=== PATIENT | female | born 1980 | race Two or more races ===

== ENCOUNTER 2021-09-02 01:39 | Observation (INO) | payer OTHER ==
[2021-09-02] MEDS ORDERED: SODIUM CHLORIDE 0.9% 500 ML INFUS.BAG IV ONE (02:26)
[2021-09-02 03:04] LABS: EPI CELLS 21 /uL (0-25.1); HYALINE CASTS 1 /uL (0-3.1); URINE APPEARANCE CLEAR; URINE BACTERIA 299 /uL (0-1359); URINE BILIRUBIN NEGATIVE (NEGATIVE); URINE COLOR YELLOW; URINE GLUCOSE (UA) NEGATIVE (NEGATIVE); URINE KETONE NEGATIVE (NEGATIVE); URINE LEUK ESTERASE TRACE (NEGATIVE); URINE NITRITE NEGATIVE (NEGATIVE); URINE PROTEIN NEGATIVE (NEGATIVE); URINE RBC 1 /uL (0-23.9); URINE UROBILINOGEN 0.2 mg/dL (0.2-1.0); URINE WBC 13 /uL (0-25.8)
[2021-09-02 03:06] LABS: BASO % 0.6 % (0-2.0); EOS % 0.2 % (0-4.5); HEMOGLOBIN 9.1 GM/dL (10.7-15.3); LYMPH % 15.3 % (8-40); MCHC 31.5 g/dl (32.0-36.0); MEAN CELL VOLUME 56.3 fl (80-96); MEAN PLT VOLUME 8.4 fl (7.5-11.1); MONO % 5.2 % (3.8-10.2); NEUT % 78.7 % (42.8-82.8); PLATELET COUNT 270 10^3/uL (134-434); RBC 5.15 M/mm3 (3.60-5.2); RDW 22.2 % (11.6-15.6); WHITE BLOOD COUNT 9.7 K/mm3 (4.0-10.0)
[2021-09-02 03:13] LABS: MCH 17.8 pg (25.7-33.7)
[2021-09-02 03:31] LABS: CHLORIDE 108 mmol/L (98-107); SODIUM 140 mmol/L (136-145)
[2021-09-02 03:33] LABS: ALBUMIN 3.8 g/dl (3.4-5.0); CALCIUM 8.4 mg/dL (8.5-10.1)
[2021-09-02 03:34] LABS: ANION GAP 9 MMOL/L (8-16); BLOOD UREA NITROGEN 14.7 mg/dL (7-18); CO2 22 mmol/L (21-32); GLUCOSE,RANDOM 128 mg/dL (74-106)
[2021-09-02 03:37] LABS: SGOT/AST 13 U/L (15-37); SGPT/ALT 27 U/L (13-61)
[2021-09-02 03:38] LABS: TOT PROT 8.1 g/dl (6.4-8.2)
[2021-09-02 03:39] LABS: BILIRUBIN,TOTAL 0.4 mg/dL (0.2-1)
[2021-09-02 03:40] LABS: ALK PHOS 64 U/L (45-117)
[2021-09-02 07:06] VITALS: TEMP 98.1
[2021-09-02 07:15] LABS: ANISOCYTOSIS 3+; MACROCYTOSIS 0; OVALOCYTE 1+; PLATELET ESTIMATE NORMAL; TARGET CELLS 2+
[2021-09-02 12:10] VITALS: BP 119/70
[2021-09-03 12:02] VITALS: PULSE 82
== END 2021-09-02 16:30 | disposition home or self-care (01) ==
LOC: JER 01:39 → JERBED 07:24
PROVIDERS: ADMIT Internal Medicine; ATTEND Internal Medicine
PROC: 3E0337Z Introduction of Electrolytic and Water Balance Substance into Peripheral Vein, Percutaneous Approach (ICD-10-PCS; principal; 2021-09-02)
DX: D64.9 Anemia, unspecified (principal); R07.9 Chest pain, unspecified; F41.9 Anxiety disorder, unspecified; R00.2 Palpitations
CPT/HCPCS: 36415; 71045-TC-FY; 80053; 81003; 82272; 82550; 84439; 84443; 84484; 84703; 85025; 85379; 86850; 86900; 86901; 87086; 87186; 87804; 93005; 93010; 99285-25; C9803; G0378; U0003; U0005

== ENCOUNTER 2024-05-05 13:00 | Inpatient (IN) | payer OTHER ==
[2024-05-05 14:59] LABS: BASO % 0.6 % (0-2.0); EOS % 0.6 % (0-4.5); HEMATOCRIT 29.8 % (32.4-45.2); HEMOGLOBIN 9.3 GM/dL (10.7-15.3); LYMPH % 18.9 % (8-40); MCHC 31.3 g/dl (32.0-36.0); MEAN CELL VOLUME 55.3 fl (80-96); MEAN PLT VOLUME 8.4 fl (7.5-11.1); MONO % 5.6 % (3.8-10.2); NEUT % 74.3 % (42.8-82.8); PLATELET COUNT 319 10^3/uL (134-434); RBC 5.38 M/mm3 (3.60-5.2); RDW 22.2 % (11.6-15.6); WHITE BLOOD COUNT 12.5 K/mm3 (4.0-10.0)
[2024-05-05 15:01] LABS: MCH 17.3 pg (25.7-33.7)
[2024-05-05] MEDS ORDERED: ONDANSETRON 4 MG/2 ML VIAL ONE (15:06)
[2024-05-05] MEDS ORDERED: LIDOCAINE VISCOUS 2% ORAL/TOP 15 ML UNIT-DOSE CUP ONE (15:06)
[2024-05-05] MEDS ORDERED: MAG HYDROX/AL HYDROX/SIMETH 30 ML UNIT-DOSE CUP ONE (15:06)
[2024-05-05] MEDS ORDERED: FAMOTIDINE 20 MG/50 ML IVPB 20 MG/50 ML MG IVPB ONE (15:07)
[2024-05-05] MEDS: SODIUM CHLORIDE 1,000 ML IV STA (15:15)
[2024-05-05] MEDS: ONDANSETRON 4 MG/2 ML VIAL IVPUSH ONE (15:16)
[2024-05-05] MEDS: LIDOCAINE VISCOUS 2% ORAL/TOP 15 ML UNIT-DOSE CUP MM ONE (15:16)
[2024-05-05] MEDS: FAMOTIDINE 20 MG/50 ML IVPB 20 MG/50 ML MG IVPB ONE (15:16)
[2024-05-05] MEDS: MAG HYDROX/AL HYDROX/SIMETH 30 ML UNIT-DOSE CUP PO ONE (15:16)
[2024-05-05 15:21] LABS: ANISOCYTOSIS 3+; MACROCYTOSIS 0; OVALOCYTE 1+
[2024-05-05 15:24] LABS: PLATELET ESTIMATE ADEQUATE
[2024-05-05 15:26] LABS: POTASSIUM 3.9 mmol/L (3.5-5.1)
[2024-05-05 15:28] LABS: ALBUMIN 3.9 g/dl (3.4-5.0); BLOOD UREA NITROGEN 8.2 mg/dL (7-18); CALCIUM 9.1 mg/dL (8.5-10.1)
[2024-05-05 15:32] LABS: CREATININE 0.7 mg/dL (0.55-1.3)
[2024-05-05 15:33] LABS: BILIRUBIN,TOTAL 0.4 mg/dL (0.2-1); TOT PROT 7.8 g/dl (6.4-8.2)
[2024-05-05 18:39] LABS: PH,URINE 6.5 (5.0-8.0); URINE APPEARANCE CLEAR; URINE BILIRUBIN NEGATIVE (NEGATIVE); URINE COLOR YELLOW; URINE GLUCOSE (UA) NEGATIVE (NEGATIVE); URINE KETONE NEGATIVE (NEGATIVE); URINE LEUK ESTERASE NEGATIVE (NEGATIVE); URINE NITRITE NEGATIVE (NEGATIVE); URINE PROTEIN NEGATIVE (NEGATIVE); URINE UROBILINOGEN 0.2 mg/dL (0.2-1.0)
[2024-05-05] MEDS ORDERED: CEFTRIAXONE 2 GM/100 ML BAG IVPB ONE (18:49)
[2024-05-05] MEDS: CEFTRIAXONE 2 GM in DEXTROSE 5%-WATER - 100 ML IVPB ONE (18:54)
[2024-05-05 19:24] VITALS: RESP 18
[2024-05-05] MEDS: DEXTROSE 5%-0.45% SALINE 1,000 ML IV SCH (23:46)
[2024-05-06] MEDS: ACETAMINOPHEN 1000 MG/100 ML BAG IVPB PRN ×2 (02:57→18:00)
[2024-05-06 07:55] VITALS: BMI 26.5
[2024-05-06] MEDS ORDERED: CEFOXITIN SODIUM 1 GM in DEXTROSE 5%-WATER - 100 ML IVPB SCH (09:00)
[2024-05-06] MEDS ORDERED: CEFOXITIN SODIUM 1 GM in DEXTROSE 5%-WATER 100 ML IVPB SCH (09:00)
[2024-05-06 10:29] LABS: BASO % 0.9 % (0-2.0); EOS % 1.7 % (0-4.5); HEMATOCRIT 27.7 % (32.4-45.2); HEMOGLOBIN 8.8 GM/dL (10.7-15.3); LYMPH % 28.6 % (8-40); MCHC 31.7 g/dl (32.0-36.0); MEAN CELL VOLUME 55.6 fl (80-96); MEAN PLT VOLUME 8.9 fl (7.5-11.1); MONO % 8.2 % (3.8-10.2); NEUT % 60.6 % (42.8-82.8); PLATELET COUNT 291 10^3/uL (134-434); RBC 4.99 M/mm3 (3.60-5.2); WHITE BLOOD COUNT 6.8 K/mm3 (4.0-10.0)
[2024-05-06 10:34] LABS: MCH 17.6 pg (25.7-33.7)
[2024-05-06 10:44] LABS: POTASSIUM 3.7 mmol/L (3.5-5.1)
[2024-05-06 10:48] LABS: BLOOD UREA NITROGEN 6.2 mg/dL (7-18); CALCIUM 8.4 mg/dL (8.5-10.1)
[2024-05-06 10:52] LABS: CREATININE 0.6 mg/dL (0.55-1.3)
[2024-05-06] MEDS ORDERED: MIDAZOLAM HCL 2 MG/2 ML SINGLE DOSE VIAL ONE (13:08)
[2024-05-06] MEDS ORDERED: ROCURONIUM BROMIDE 50 MG/5 ML SYRINGE ONE (13:08)
[2024-05-06] MEDS ORDERED: SUCCINYLCHOLINE CHLORIDE 200 MG/10 ML SYRINGE ONE (13:08)
[2024-05-06] MEDS ORDERED: PROPOFOL 40 ML ONE (13:08)
[2024-05-06] MEDS ORDERED: BUPIVACAINE HCL/PF 0.25% (2.5MG/ML) 10 ML VIAL ONE (13:20)
[2024-05-06] MEDS ORDERED: cefOXitin SODIUM 2 GM VIAL (RESTRICTED TO ID) IVPB ONE (14:14)
[2024-05-06] MEDS: BUPIVACAINE HCL/PF 0.25% (2.5MG/ML) 10 ML VIAL STI ONE (14:30)
[2024-05-06] MEDS ORDERED: NEOSTIGMINE METHYLSULFATE 0.5 MG/1 ML - 10 ML MDV ONE (15:38)
[2024-05-06] MEDS: FAMOTIDINE 20 MG/50 ML IVPB 20 MG/50 ML MG IVPB ONE (17:34)
[2024-05-06] MEDS ORDERED: ACETAMINOPHEN INJECTION 100 ML IVPB ONE (17:54)
[2024-05-06] MEDS ORDERED: KETOROLAC TROMETHAMINE 30 MG/1 ML VIAL IVPUSH SCH (18:00)
[2024-05-06] MEDS ORDERED: ONDANSETRON 4 MG/2 ML VIAL IVPUSH PRN (18:07)
[2024-05-06] MEDS: DEXTROSE 5%-0.45% SALINE 1,000 ML IV SCH (20:00)
[2024-05-07] MEDS: ACETAMINOPHEN 325 MG TABLET (FP) PO ONE (02:22)
[2024-05-07] MEDS ORDERED: oxyCODONE HCL 5 MG TABLET PO PRN (05:41)
[2024-05-07] MEDS: CEFTRIAXONE 1 GM in DEXTROSE 5%-WATER - 50 ML IVPB SCH (08:04)
[2024-05-07] MEDS: LACTATED RINGERS SOLUTION 1,000 ML IV SCH (08:04)
[2024-05-07 09:29] VITALS: BP 118/79; PULSE 74; TEMP 98.4
[2024-05-07] MEDS ORDERED: CEFTRIAXONE 1 GM in DEXTROSE 5%-WATER - 50 ML IVPB SCH (10:00)
[2024-05-07 10:18] LABS: HEMATOCRIT 28.3 % (32.4-45.2); HEMOGLOBIN 8.7 GM/dL (10.7-15.3); MCHC 30.9 g/dl (32.0-36.0); MEAN CELL VOLUME 55.9 fl (80-96); MEAN PLT VOLUME 8.7 fl (7.5-11.1); PLATELET COUNT 290 10^3/uL (134-434); RBC 5.07 M/mm3 (3.60-5.2); RDW 22.2 % (11.6-15.6); WHITE BLOOD COUNT 14.8 K/mm3 (4.0-10.0)
[2024-05-07 10:19] LABS: MCH 17.3 pg (25.7-33.7)
[2024-05-07 10:30] LABS: ALBUMIN 3.3 g/dl (3.4-5.0)
[2024-05-07 10:33] LABS: BILIRUBIN,TOTAL 0.4 mg/dL (0.2-1); TOT PROT 6.9 g/dl (6.4-8.2)
[2024-05-07 10:34] LABS: BILIRUBIN,DIRECT 0.1 mg/dL (0.0-0.2)
[2024-05-07] MEDS: ACETAMINOPHEN 500 MG TABLET (FP) PO SCH (10:43)
[2024-05-07] MEDS: LACTATED RINGERS SOLUTION 1000 ML INFUS.BAG IV ONE (12:06)
[2024-05-07 13:20] LABS: BASO % 0.2 % (0-2.0); HEMATOCRIT 26.1 % (32.4-45.2); HEMOGLOBIN 8.1 GM/dL (10.7-15.3); MCH 17.2 pg (25.7-33.7); MCHC 30.9 g/dl (32.0-36.0); MEAN CELL VOLUME 55.6 fl (80-96); MEAN PLT VOLUME 8.6 fl (7.5-11.1); NEUT % 78.8 % (42.8-82.8); PLATELET COUNT 270 10^3/uL (134-434); WHITE BLOOD COUNT 14.7 K/mm3 (4.0-10.0)
[2024-05-07 13:45] LABS: POTASSIUM 3.6 mmol/L (3.5-5.1)
[2024-05-07 13:49] LABS: CALCIUM 8.3 mg/dL (8.5-10.1)
[2024-05-07 13:50] LABS: ALBUMIN 3.2 g/dl (3.4-5.0)
[2024-05-07 13:53] LABS: BILIRUBIN,TOTAL 1.3 mg/dL (0.2-1); CREATININE 0.7 mg/dL (0.55-1.3)
[2024-05-07 13:54] LABS: TOT PROT 6.3 g/dl (6.4-8.2)
== END 2024-05-07 18:09 | disposition home or self-care (01) | DRG 263 ==
LOC: JER 13:00 → JERBED 17:23 → J6S 19:26
PROVIDERS: ADMIT Internal Medicine; ATTEND Internal Medicine
PROC: 0FT44ZZ Resection of Gallbladder, Percutaneous Endoscopic Approach (ICD-10-PCS; principal; 2024-05-06 14:38)
DX: K80.12 Calculus of gallbladder with acute and chronic cholecystitis without obstruction (principal); I10 Essential (primary) hypertension; R10.11 Right upper quadrant pain; D72.829 Elevated white blood cell count, unspecified
CPT/HCPCS: 36415; 76705-TC; 80048; 80053; 80076; 81003; 82550; 82728; 83540; 83550; 83690; 84484; 84703; 85025; 85027; 86850; 86900; 86901; 88304-TC; 93005; 93010; 94010; 94760; 99285-25; J0131